=== PATIENT | male | born 1985 | race Caucasian/White ===

== ENCOUNTER 2020-07-25 08:37 | Observation (INO) | payer BC, OTHER ==
[~2020-07-25] VITALS: Ht 198.1 cm; Wt 111.6 kg
[2020-07-25 09:21] LABS: HEMOGLOBIN 16.5 gm/dl (14.0-17.5); RED BLOOD COUNT 5.46 M/UL (4.20-5.50); WHITE BLOOD COUNT 29.5 K/UL (4.5-11.0)
[2020-07-25 09:48] LABS: BUN/CREATININE RATIO 12 (0-10)
[2020-07-25] MEDS ORDERED: FISH OIL 1,0001 EACH PO (13:14)
[2020-07-25] MEDS ORDERED: DAILY VITE1 EACH PO (13:14)
[2020-07-25] MEDS ORDERED: HYDROCHLOROTHIA25 MG PO (13:14)
[2020-07-25] MEDS ORDERED: TESTOSTERON100 MG/ML IM (13:15)
[2020-07-26 03:58] LABS: RED BLOOD COUNT 5.36 M/UL (4.20-5.50); WHITE BLOOD COUNT 22.7 K/UL (4.5-11.0)
[2020-07-26 04:30] LABS: BUN/CREATININE RATIO 12 (0-10)
[2020-07-26 16:54] LABS: BORDETELLA PARAPERTUSSIS Not Detected (Not Detectd); BORDETELLA PERTUSSIS Not Detected (Not Detectd); CHLAMYDIA PNEUMONIAE Not Detected (Not Detectd); CORONAVIRUS HKU1 Not Detected (Not Detectd); CORONAVIRUS NL63 Not Detected (Not Detectd); CORONAVIRUS OC43 Not Detected (Not Detectd); CORONOAVIRUS 229E Not Detected (Not Detectd); HUMAN METAPNEUMOVIRUS Not Detected (Not Detectd); HUMAN RHINOVIRUS/ENTEROVIRUS Not Detected (Not Detectd); INFLUENZA A Not Detected (Not Detectd); INFLUENZA B Not Detected (Not Detectd); MYCOPLASMA PNEUMONIAE Not Detected (Not Detectd); PARAINFLUENZA VIRUS 1 Not Detected (Not Detectd); PARAINFLUENZA VIRUS 2 Not Detected (Not Detectd); PARAINFLUENZA VIRUS 3 Not Detected (Not Detectd); PARAINFLUENZA VIRUS 4 Not Detected (Not Detectd); RESPIRATORY SYNCYTIAL VIRUS Not Detected (Not Detectd)
[2020-07-26 18:01] LABS: SARS-CoV-2 NOT DETECTED (Not Detectd)
[2020-07-27 01:55] LABS: HEMOGLOBIN 15.5 gm/dl (14.0-17.5); RED BLOOD COUNT 5.21 M/UL (4.20-5.50)
[2020-07-27 01:57] LABS: WHITE BLOOD COUNT 15.4 K/UL (4.5-11.0)
[2020-07-27 02:30] LABS: BUN/CREATININE RATIO 11 (0-10)
[2020-07-27] MEDS ORDERED: BUTALB-ACETAMI1 EAC1 PO (12:42)
== END 2020-07-27 14:57 | disposition home or self-care (01) ==
LOC: ER1 08:37 → MED SURG 4 11:32 → ZEROF 11:32 → MED SURG 4 22:48
PROVIDERS: Emergency Medicine; Physician Assistant Medical; ADMIT Internal Medicine
DX: D72.829 Elevated white blood cell count, unspecified (principal); J04.0 Acute laryngitis; R51.9 Headache, unspecified; R79.89 Other specified abnormal findings of blood chemistry; R77.8 Other specified abnormalities of plasma proteins; J20.9 Acute bronchitis, unspecified; R74.8 Abnormal levels of other serum enzymes; R00.2 Palpitations; Z86.16 Personal history of COVID-19; Z23 Encounter for immunization; Z88.8 Allergy status to other drugs, medicaments and biological substances
CPT/HCPCS: ECHO; 36415; 70450; 71045; 80048; 80053; 81001; 82550; 82553; 83036; 83605; 83735; 83874; 83880; 84484; 85025; 85027; 85379; 87040; 87081; 87633; 87880; 93005; 93306; 96365; 99285; G0378; J1650